=== PATIENT | female | born 1980 | race Two or more races ===

== ENCOUNTER 2020-10-08 15:09 | Inpatient (IN) | payer MEDICAID ==
[~2020-10-08] VITALS: Ht 162.6 cm; Wt 147.0 kg
[~2020-10-08 15:09] MED LIST: LEV500T PO; MET25T PO; POLY33504 PO; PRE5T PO; PRED-188 PO
[2020-10-08 18:09] LABS: Basophils # (auto) 0.2 10 ^3/uL (0-0.2); Basophils % (auto) 0.8 % (0.0-2.0); Eosinophils # (auto) 0.1 10 ^3/uL (0-0.8); Eosinophils % (auto) 0.6 % (0.0-7.0); Hematocrit 47.4 % (36.0-46.0); Hemoglobin 16.4 g/dL (12.2-16.2); Lymphocytes # (auto) 6.5 10 ^3/uL (0.4-5.4); Lymphocytes % (auto) 27.8 % (10.0-50.0); Mean Corpuscular Hemoglobin 30.3 pg (28.0-32.0); Mean Corpuscular Hgb Conc. 34.5 g/dL (32.0-36.0); Mean Corpuscular Volume 87.9 fL (80.0-100.0); Monocytes # (auto) 1.5 10 ^3/uL (0-1.3); Monocytes % (auto) 6.5 % (0.0-12.0); Neutrophils % (auto) 64.3 % (37.0-80.0); Nucleated Red Blood Cells % 0.6 %; Platelet Count (auto) 255 10^3/uL (140-450); Red Cell Distribution Width 13.7 % (11.8-14.3); White Blood Cell 23.3 10^3/uL (4.4-10.8)
[2020-10-08 18:16] LABS: Albumin 3.2 g/dL (3.4-5.0); Anion Gap 8 (5-15); Blood Urea Nitrogen 9 mg/dL (7-18); Calcium 9.1 mg/dL (8.5-10.1); Carbon Dioxide 27 mmol/L (21-32); Chloride 103 mmol/L (98-107); Glucose 99 mg/dL (74-106); Sodium 138 mmol/L (136-145)
[2020-10-08 18:21] LABS: Alanine Aminotransferase 25 U/L (13-56); Alkaline Phosphatase 99 U/L (45-117); Aspartate Aminotransferase 25 U/L (15-37); BUN/Creatinine Ratio 7.5; Bilirubin, Total 1.1 mg/dL (0.2-1.0); GFR African American 64 mL/min; GFR Non-African American 53 mL/min; Total Protein 7.8 g/dL (6.4-8.2)
[2020-10-08] MEDS ORDERED: levoFLOXacin 500MG 100 ML IV ONE ×2 (19:30→20:30)
[2020-10-08] MEDS ORDERED: MORPHINE SULF INJ 2 MG/ML SYRINGE 1ML IV PRN (20:45)
[2020-10-08] MEDS ORDERED: NITROGLYCERIN 0.4 MG SL TAB SL PRN (20:45)
[2020-10-08] MEDS ORDERED: ENOXAPARIN SOD 100 MG/1 ML SYRINGE SC ONE (20:45)
[2020-10-08] MEDS ORDERED: IOHEXOL 350 MG/ML 100ML IJ ONE (22:58)
[2020-10-09 00:09] VITALS: BP 113/53
[2020-10-09 01:16] VITALS: BP 113/52
[2020-10-09] MEDS ORDERED: ACETAMINOPHEN 325 MG TAB PO PRN (03:00)
[2020-10-09] MEDS ORDERED: FURO20TA3 PO (03:33)
[2020-10-09] MEDS ORDERED: METO25TA93 PO (03:33)
[2020-10-09] MEDS ORDERED: LEVO25TA6 PO (03:33)
[2020-10-09] MEDS ORDERED: LISI20TA28 PO (03:33)
[2020-10-09 05:43] VITALS: BP 119/83
[2020-10-09] MEDS ORDERED: LEVOTHYROXINE SODIUM 50 MCG TAB PO SCH (07:00)
[2020-10-09 08:58] VITALS: BP 142/85
[2020-10-09] MEDS ORDERED: cefTRIAXone 1GM/50ML D5W 50 ML IV SCH (10:00)
[2020-10-09] MEDS ORDERED: LISINOPRIL 20 MG TAB PO SCH (10:00)
[2020-10-09] MEDS ORDERED: METOPROLOL SUCCINATE XL 50 MG TAB PO SCH (10:00)
[2020-10-09 12:48] VITALS: BP 117/68
[2020-10-09 13:26] LABS: Basophils # (auto) 0.1 10 ^3/uL (0-0.2); Basophils % (auto) 0.7 % (0.0-2.0); Eosinophils # (auto) 0.2 10 ^3/uL (0-0.8); Eosinophils % (auto) 1.7 % (0.0-7.0); Hematocrit 42.2 % (36.0-46.0); Hemoglobin 14.5 g/dL (12.2-16.2); Lymphocytes # (auto) 3.7 10 ^3/uL (0.4-5.4); Lymphocytes % (auto) 32.8 % (10.0-50.0); Mean Corpuscular Hemoglobin 30.2 pg (28.0-32.0); Mean Corpuscular Hgb Conc. 34.3 g/dL (32.0-36.0); Mean Corpuscular Volume 88.2 fL (80.0-100.0); Monocytes # (auto) 0.8 10 ^3/uL (0-1.3); Neutrophils # (auto) 6.5 10 ^3/uL (1.6-8.6); Neutrophils % (auto) 57.8 % (37.0-80.0); Nucleated Red Blood Cells % 0.2 %; Platelet Count (auto) 241 10^3/uL (140-450); Red Blood Cells 4.79 10^6/uL (4.0-5.20); Red Cell Distribution Width 14.2 % (11.8-14.3); White Blood Cell 11.2 10^3/uL (4.4-10.8)
[2020-10-09 13:39] LABS: Albumin 2.9 g/dL (3.4-5.0); Calcium 9.5 mg/dL (8.5-10.1); Potassium 3.7 mmol/L (3.5-5.1)
[2020-10-09 13:42] LABS: BUN/Creatinine Ratio 10.9; Bilirubin, Total 0.6 mg/dL (0.2-1.0); Total Protein 7.2 g/dL (6.4-8.2)
[2020-10-09] MEDS ORDERED: levoFLOXacin 500 MG TAB PO ONE (14:00)
[2020-10-09 16:26] VITALS: BP 144/85
[2020-10-09] MEDS ORDERED: ALBUAER3 IN (17:31)
[2020-10-09] MEDS ORDERED: LEVO500T31 PO (17:31)
[2020-10-09] MEDS ORDERED: DEXT1SYP9 PO (17:31)
== END 2020-10-09 18:25 | disposition home or self-care (01) | DRG 139 ==
LOC: ER 15:09 → TELE 20:52 → TELE-CENTR 10-09 00:09
PROVIDERS: ADMIT Hospitalist; ATTEND Hospitalist
DX: J18.9 Pneumonia, unspecified organism (principal); I11.0 Hypertensive heart disease with heart failure; E66.01 Morbid (severe) obesity due to excess calories; I50.9 Heart failure, unspecified; Z68.43 Body mass index [BMI] 50.0-59.9, adult; E03.9 Hypothyroidism, unspecified; Z20.822 Contact with and (suspected) exposure to COVID-19; Z80.49 Family history of malignant neoplasm of other genital organs; F32.9 Major depressive disorder, single episode, unspecified; R79.89 Other specified abnormal findings of blood chemistry; Z88.6 Allergy status to analgesic agent; Z88.5 Allergy status to narcotic agent
CPT/HCPCS: 36415; 71046; 71275; 80053; 83605; 84484; 85025; 85379; 87040; 87426; 93005; 93970; 96365; 96372; G0378; J0696; J1956

== ENCOUNTER 2023-06-05 16:10 | Emergency (ER) | payer MEDICAID ==
[~2023-06-05 16:10] MED LIST changes: +ALBUAER3 IN; +DEXT1SYP9 PO; +FURO20TA3 PO; -LEV500T PO; +LEVO25TA6 PO; +LEVO500T31 PO; +LISI20TA56 PO; -MET25T PO; +METO25TA93 PO; -POLY33504 PO; -PRE5T PO; -PRED-188 PO
[2023-06-05 17:14] LABS: Basophils # (auto) 0.1 10 ^3/uL (0-0.2); Basophils % (auto) 0.5 % (0.0-2.0); Eosinophils # (auto) 0.2 10 ^3/uL (0-0.8); Hemoglobin 16.6 g/dL (12.2-16.2); Lymphocytes # (auto) 3.1 10 ^3/uL (0.4-5.4); Lymphocytes % (auto) 18.4 % (10.0-50.0); Mean Corpuscular Hemoglobin 28.8 pg (28.0-32.0); Mean Corpuscular Hgb Conc. 32.6 g/dL (32.0-36.0); Mean Corpuscular Volume 88.2 fL (80.0-100.0); Monocytes # (auto) 1.1 10 ^3/uL (0-1.3); Monocytes % (auto) 6.3 % (0.0-12.0); Neutrophils # (auto) 12.3 10 ^3/uL (1.6-8.6); Neutrophils % (auto) 73.8 % (37.0-80.0); Nucleated Red Blood Cells % 0.2 %; Red Blood Cells 5.78 10^6/uL (4.0-5.20); Red Cell Distribution Width 13.4 % (11.8-14.3); White Blood Cell 16.7 10^3/uL (4.4-10.8)
[2023-06-05 17:36] LABS: Alanine Aminotransferase 19 U/L (7-40); Alkaline Phosphatase 109 U/L (46-116); Aspartate Aminotransferase 24 U/L (13-40); BUN/Creatinine Ratio 11.7 (10.0-20.0); Bilirubin, Total 0.6 mg/dL (0.2-1.0); Blood Urea Nitrogen 13 mg/dL (9-23); Calcium 10.3 mg/dL (8.7-10.4); Carbon Dioxide 25 mmol/L (20-30); Glucose 117 mg/dL (74-106); Total Protein 7.8 g/dL (5.7-8.2)
[2023-06-05] MEDS ORDERED: LISINOPRIL 10 MG TAB PO ONE (17:45)
[2023-06-05 18:29] LABS: Anion Gap 10 (5-15); Chloride 103 mmol/L (98-107); Potassium 4.5 mmol/L (3.5-5.1); Sodium 138 mmol/L (136-145)
[2023-06-05 18:41] VITALS: BP 159/98; RESP 20; O2SAT 95
[2023-06-05 18:46] VITALS: PULSE 102
[2023-06-05] MEDS ORDERED: IPRATROPIUM BROM 0.5 MG/2.5ML INH SOL NEB ONE (19:30)
[2023-06-05] MEDS ORDERED: methylPREDNISolone SOD SUCC 125 MG/2 ML VL IM ONE (19:30)
[2023-06-05] MEDS ORDERED: ALBUTEROL SULF 2.5 MG/0.5ML(0.5%) NEB SOLN NEB ONE (19:30)
[2023-06-05] MEDS ORDERED: cefTRIAXone SOD 1,000 MG VL IM ONE (19:30)
[2023-06-05] MEDS ORDERED: PRED20TA2 PO (21:10)
[2023-06-05] MEDS ORDERED: AZITTAB PO (21:10)
[2023-06-05] MEDS ORDERED: ALBU108A5 IN (21:10)
== END 2023-06-05 21:10 | disposition home or self-care (01) ==
LOC: ER 16:10
DX: I11.0 Hypertensive heart disease with heart failure (principal); I50.9 Heart failure, unspecified; J18.9 Pneumonia, unspecified organism
CPT/HCPCS: 36415; 71045; 80053; 84484; 85025; 93005; 96372; 99285; J0696; J2930; J7644

== ENCOUNTER 2024-02-21 01:49 | Inpatient (IN) | payer MEDICAID ==
[2024-02-21] VITALS (70 sets, daily range): BP systolic 111–205; BP diastolic 48–99; PULSE 44–113; RESP 12–29; TEMP 95.9–99; O2SAT 90–100
[~2024-02-21] VITALS: Ht 162.6 cm; Wt 138.5 kg
[~2024-02-21 01:49] MED LIST changes: +ALBU108A5 IN; +ALBU108A5 INH; +AZITTAB PO; +CANA100T PO; +CARV12.544 PO; +FURO20TA4 PO; +POTA-180 PO; +PRED20TA2 PO
[2024-02-21] MEDS: HALOPERIDOL LACTATE 5 MG/ML INJ VIAL IM ONE (02:15)
[2024-02-21] MEDS: ACTIVATED CHARCOAL 50 GM/240 ML SOL NG ONE (02:15)
[2024-02-21] MEDS: NALOXONE HCL 1MG/ML 2ML SYRINGE IV ONE (02:20)
[2024-02-21] MEDS: FLUMAZENIL 0.1 MG/ML INJ 10ML MDV IV ONE (02:44)
[2024-02-21 02:46] LABS: Basophils # (auto) 0.1 10 ^3/uL (0-0.2); Basophils % (auto) 0.7 % (0.0-2.0); Eosinophils # (auto) 0.1 10 ^3/uL (0-0.8); Hemoglobin 11.4 g/dL (12.2-16.2); Monocytes # (auto) 0.6 10 ^3/uL (0-1.3); Neutrophils # (auto) 4.8 10 ^3/uL (1.6-8.6)
[2024-02-21 02:47] LABS: Eosinophils % (auto) 1.6 % (0.0-7.0); Hematocrit 36.1 % (36.0-46.0); Lymphocytes # (auto) 2.1 10 ^3/uL (0.4-5.4); Lymphocytes % (auto) 27.4 % (10.0-50.0); Mean Corpuscular Hemoglobin 23.7 pg (28.0-32.0); Mean Corpuscular Hgb Conc. 31.7 g/dL (32.0-36.0); Mean Corpuscular Volume 74.7 fL (80.0-100.0); Monocytes % (auto) 7.8 % (0.0-12.0); Neutrophils % (auto) 62.5 % (37.0-80.0); Platelet Count (auto) 254 10^3/uL (140-450); Red Blood Cells 4.83 10^6/uL (4.0-5.20); Red Cell Distribution Width 16.9 % (11.8-14.3); White Blood Cell 7.7 10^3/uL (4.4-10.8)
[2024-02-21] MEDS: HALOPERIDOL LACTATE 5 MG/ML INJ VIAL ONE (02:49)
[2024-02-21 02:56] LABS: Acetaminophen < 2.0 UG/ML (10.0-20.0)
[2024-02-21 02:57] LABS: Alanine Aminotransferase 11 U/L (7-40); Albumin 4.4 g/dL (3.2-4.8); Alkaline Phosphatase 99 U/L (46-116); Anion Gap 7 (5-15); Aspartate Aminotransferase 13 U/L (13-40); Bilirubin, Total 0.5 mg/dL (0.2-1.0); Blood Urea Nitrogen 15 mg/dL (9-23); Calcium 9.2 mg/dL (8.7-10.4); Carbon Dioxide 25 mmol/L (20-30); Chloride 109 mmol/L (98-107); Glucose 136 mg/dL (74-106); Potassium 3.4 mmol/L (3.5-5.1); Sodium 141 mmol/L (136-145); Total Protein 7.3 g/dL (5.7-8.2)
[2024-02-21 03:02] LABS: Salicylate < 3.0 mg/dL (2.8-20.0)
[2024-02-21 03:06] LABS: Urine Bacteria None Seen /hpf (None Seen)
[2024-02-21 03:10] LABS: Urine Blood 1+ /uL (Negative); Urine Clarity Clear (Clear); Urine Color Light-Yellow (Yellow); Urine Protein, UAD Negative (Negative); Urine Specific Gravity 1.022 (1.001-1.035); Urine Urobilinogen 2 mg/dL (Negative); Urine WBC <1 /hpf (0 - 5)
[2024-02-21 03:16] LABS: Blood Alcohol < 3.0 mg/dL (<10)
[2024-02-21 03:23] LABS: Amphetamine Screen, Urine Pos (NEGATIVE); Barbiturate Scree,Urine Neg (NEGATIVE); Benzodiazephine Screen, Urine Neg (NEGATIVE); Cocaine Screen, Urine Neg (NEGATIVE)
[2024-02-21 03:24] LABS: Cannabinoid Screen, Urine Neg (NEGATIVE); Opiate Scree,Urine Neg (NEGATIVE); Phencyclidine Screen, Urine Neg (NEGATIVE)
[2024-02-21] MEDS: LABETALOL HCL 20 MG/4 ML VL IV ONE (04:03)
[2024-02-21] MEDS: GLUCAGON EMERG KIT 1mg/1ml IV ONE (04:16)
[2024-02-21] MEDS: DOPamine 1600MCG/ML D5W 250 ML IV ONE (04:24)
[2024-02-21] MEDS: DOPamine 1600MCG/ML D5W 250 ML IV SCH (04:30)
[2024-02-21] MEDS: ETOMIDATE (2MG/ML) 20ML VIAL IV ONE (04:37)
[2024-02-21] MEDS: SUCCINYLCHOLINE CHLORIDE 20 MG/ML 10ML VIAL IV ONE (04:38)
[2024-02-21] MEDS: MIDAZOLAM DRIP 50 mg/50mL 50 ML IV SCH (04:45)
[2024-02-21] MEDS: SODIUM CHLORIDE 0.9% 1,000 ML IV SCH (06:00)
[2024-02-21] MEDS ORDERED: NITROGLYCERIN 0.4 MG SL TAB SL PRN (06:00)
[2024-02-21] MEDS ORDERED: ONDANSETRON HCL 4 MG/2 ML VIAL IV PRN (06:00)
[2024-02-21] MEDS ORDERED: MORPHINE SULFATE INJ 2 MG/ml SYRG IV PRN (06:00)
[2024-02-21] MEDS: GLUCAGON EMERG KIT 1mg/1ml ONE (06:18)
[2024-02-21 07:13] LABS: Base Excess -3.1 mmol/L (-2.0-3.0)
[2024-02-21] MEDS: ROCURONIUM 10MG/ML 10ML VIAL IV ONE (07:24)
[2024-02-21] MEDS: ENOXAPARIN SOD 40 MG/0.4 ML SYRINGE SC SCH (10:58)
[2024-02-21] MEDS: hydrALAZINE HCL 20 MG/ML VL IV PRN (11:08)
[2024-02-21] MEDS: D5W/SOD CHL 0.9%/KCL 40MEQ 1,000 ML IV SCH (11:08)
[2024-02-21] MEDS: hydrALAZINE HCL 20 MG/ML VL ONE (11:17)
[2024-02-21] MEDS: LISINOPRIL 20 MG TAB PO ONE (11:58)
[2024-02-21] MEDS: IPRATROPIUM BROM 0.5 MG/2.5ML INH SOL NEB SCH (13:47)
[2024-02-21] MEDS: ALBUTEROL SULF 2.5 MG/0.5ML(0.5%) NEB SOLN NEB SCH (13:47)
[2024-02-21 14:45] LABS: Chloride 112 mmol/L (98-107); Potassium 3.9 mmol/L (3.5-5.1); Sodium 144 mmol/L (136-145)
[2024-02-21 14:46] LABS: Anion Gap 6 (5-15); Carbon Dioxide 26 mmol/L (20-30)
[2024-02-21 14:47] LABS: Calcium 9.3 mg/dL (8.7-10.4)
[2024-02-21 14:51] LABS: BUN/Creatinine Ratio 12.8 (10.0-20.0); Blood Urea Nitrogen 11 mg/dL (9-23); Glucose 103 mg/dL (74-106)
[2024-02-21 14:52] LABS: Magnesium 2.2 mg/dL (1.6-2.6)
[2024-02-21] MEDS: fentaNYL Drip 2500mCg/250mlNS 250 ML IV SCH (15:33)
[2024-02-21] MEDS: fentaNYL Drip 2500mCg/250mlNS 250 ML IV ONE (15:34)
[2024-02-22] VITALS (106 sets, daily range): BP systolic 79–219; BP diastolic 20–106; PULSE 64–136; RESP 10–25; TEMP 98.4–100.8; O2SAT 80–100
[2024-02-22 03:59] LABS: Basophils # (auto) 0 10 ^3/uL (0-0.2); Basophils % (auto) 0.2 % (0.0-2.0); Eosinophils # (auto) 0 10 ^3/uL (0-0.8); Eosinophils % (auto) 0.3 % (0.0-7.0); Hematocrit 40.7 % (36.0-46.0); Hemoglobin 12.2 g/dL (12.2-16.2); Lymphocytes % (auto) 6.9 % (10.0-50.0); Mean Corpuscular Hemoglobin 23.6 pg (28.0-32.0); Mean Corpuscular Hgb Conc. 29.8 g/dL (32.0-36.0); Mean Corpuscular Volume 79.1 fL (80.0-100.0); Monocytes # (auto) 0.9 10 ^3/uL (0-1.3); Monocytes % (auto) 5.9 % (0.0-12.0); Neutrophils # (auto) 12.8 10 ^3/uL (1.6-8.6); Neutrophils % (auto) 86.7 % (37.0-80.0); Nucleated Red Blood Cells % 0.1 %; Platelet Count (auto) 235 10^3/uL (140-450); Red Blood Cells 5.15 10^6/uL (4.0-5.20); Red Cell Distribution Width 18.2 % (11.8-14.3); White Blood Cell 14.8 10^3/uL (4.4-10.8)
[2024-02-22 04:18] LABS: Albumin 4.1 g/dL (3.2-4.8); Alkaline Phosphatase 89 U/L (46-116); Anion Gap 11 (5-15); Aspartate Aminotransferase 16 U/L (13-40); BUN/Creatinine Ratio 7.1 (10.0-20.0); Bilirubin, Total 0.4 mg/dL (0.2-1.0); Blood Urea Nitrogen 6 mg/dL (9-23); Calcium 8.8 mg/dL (8.7-10.4); Carbon Dioxide 20 mmol/L (20-30); Chloride 111 mmol/L (98-107); Glucose 192 mg/dL (74-106); Potassium 3.8 mmol/L (3.5-5.1); Sodium 142 mmol/L (136-145); Total Protein 6.8 g/dL (5.7-8.2)
[2024-02-22 04:46] LABS: Alanine Aminotransferase < 9 U/L (7-40)
[2024-02-22] MEDS ORDERED: VANCOMYCIN PER PHARMACY 0 MG IV SCH (09:15)
[2024-02-22] MEDS: PANTOPRAZOLE 40 MG/10 ML VIAL INJ IV SCH (09:16)
[2024-02-22] MEDS: LISINOPRIL 20 MG TAB PO SCH (09:17)
[2024-02-22] MEDS: cefTRIAXone 1GM/50ML D5W 50 ML IV SCH (10:17)
[2024-02-22] MEDS: FUROSEMIDE 40 MG/4 ML VIAL IV SCH (10:37)
[2024-02-22] MEDS: POTASSIUM EFFERVESENT TAB 25 MEQ PO SCH (10:37)
[2024-02-22] MEDS: VANCOMYCIN 1GM/200ML 200 ML IV ONE ×2 (10:54→12:14)
[2024-02-22] MEDS: Jevity 1.2 Cal/Fiber 1 Liter GT SCH (13:06)
[2024-02-22] MEDS: ACETAMINOPHEN 325 MG TAB PO PRN (13:10)
[2024-02-22] MEDS: ACETAMINOPHEN IV 1000 MG/100ML (10MG/ML) IV ONE (18:26)
[2024-02-22 18:40] LABS: INR 1.07 (0.9-1.15); Partial Thromboplastin Time 30.2 SEC (24.5-34.5); Prothrombin Time 11.3 sec (9.3-11.8)
[2024-02-22] MEDS: PROPOFOL 100 ML IV SCH (19:49)
[2024-02-22] MEDS: NOREPINEPHRINE 8 MG/250ML KIT 250 ML IV ONE (20:55)
[2024-02-22] MEDS: NOREPINEPHRINE 8 MG/250ML KIT 250 ML IV SCH (20:58)
[2024-02-22] MEDS: VANCOMYCIN 1GM/200ML 200 ML IV SCH (22:14)
[2024-02-23] VITALS (107 sets, daily range): BP systolic 94–149; BP diastolic 38–72; PULSE 84–98; RESP 12–21; TEMP 99.3–100.8; O2SAT 91–100
[2024-02-23 04:13] LABS: Chloride 109 mmol/L (98-107); Potassium 4.2 mmol/L (3.5-5.1); Sodium 139 mmol/L (136-145)
[2024-02-23 04:14] LABS: Anion Gap 12 (5-15); Calcium 9.6 mg/dL (8.7-10.4); Carbon Dioxide 18 mmol/L (20-30)
[2024-02-23 04:19] LABS: BUN/Creatinine Ratio 7.4 (10.0-20.0); Blood Urea Nitrogen 8 mg/dL (9-23); Glucose 103 mg/dL (74-106)
[2024-02-23 04:20] LABS: Magnesium 2.4 mg/dL (1.6-2.6)
[2024-02-23 04:46] LABS: Basophils # (auto) 0.1 10 ^3/uL (0-0.2); Basophils % (auto) 0.6 % (0.0-2.0); Eosinophils # (auto) 0.2 10 ^3/uL (0-0.8); Eosinophils % (auto) 1.4 % (0.0-7.0); Hematocrit 35.8 % (36.0-46.0); Lymphocytes # (auto) 1.6 10 ^3/uL (0.4-5.4); Lymphocytes % (auto) 14.5 % (10.0-50.0); Mean Corpuscular Hemoglobin 24.1 pg (28.0-32.0); Mean Corpuscular Hgb Conc. 30.8 g/dL (32.0-36.0); Mean Corpuscular Volume 78.2 fL (80.0-100.0); Monocytes # (auto) 1.1 10 ^3/uL (0-1.3); Monocytes % (auto) 10.5 % (0.0-12.0); Neutrophils # (auto) 7.9 10 ^3/uL (1.6-8.6); Platelet Count (auto) 250 10^3/uL (140-450); Red Blood Cells 4.58 10^6/uL (4.0-5.20); Red Cell Distribution Width 18.4 % (11.8-14.3); White Blood Cell 10.8 10^3/uL (4.4-10.8)
[2024-02-23 08:13] LABS: Base Excess -2.9 mmol/L (-2.0-3.0)
[2024-02-24] VITALS (106 sets, daily range): BP systolic 100–138; BP diastolic 42–65; PULSE 78–91; RESP 10–20; TEMP 98.1–99.3; O2SAT 88–100
[2024-02-24 04:22] LABS: Anion Gap 5 (5-15); Calcium 9.3 mg/dL (8.7-10.4); Carbon Dioxide 27 mmol/L (20-30); Chloride 108 mmol/L (98-107); Sodium 140 mmol/L (136-145)
[2024-02-24 04:25] LABS: Eosinophils # (auto) 0.2 10 ^3/uL (0-0.8); Monocytes # (auto) 0.8 10 ^3/uL (0-1.3); Platelet Count (auto) 231 10^3/uL (140-450); Red Cell Distribution Width 17.8 % (11.8-14.3)
[2024-02-24 04:28] LABS: BUN/Creatinine Ratio 17.4 (10.0-20.0); Basophils # (auto) 0.1 10 ^3/uL (0-0.2); Basophils % (auto) 0.7 % (0.0-2.0); Blood Urea Nitrogen 16 mg/dL (9-23); Eosinophils % (auto) 2.1 % (0.0-7.0); Glucose 99 mg/dL (74-106); Hematocrit 30.5 % (36.0-46.0); Lymphocytes # (auto) 1.4 10 ^3/uL (0.4-5.4); Lymphocytes % (auto) 15.5 % (10.0-50.0); Mean Corpuscular Hemoglobin 24.8 pg (28.0-32.0); Mean Corpuscular Hgb Conc. 32.8 g/dL (32.0-36.0); Mean Corpuscular Volume 75.5 fL (80.0-100.0); Monocytes % (auto) 8.7 % (0.0-12.0); Neutrophils # (auto) 6.6 10 ^3/uL (1.6-8.6); Nucleated Red Blood Cells % 0.2 %; Red Blood Cells 4.04 10^6/uL (4.0-5.20)
[2024-02-24 08:13] LABS: Base Excess -0.9 mmol/L (-2.0-3.0)
[2024-02-24] MEDS: IOHEXOL 350 MG/ML 100ML IJ ONE ×2 (08:40→10:31)
[2024-02-24] MEDS: MEROPENEM 1GM IVPB 50 ML IV SCH (13:36)
[2024-02-24] MEDS: VANCOMYCIN 1GM/200ML 200 ML IV SCH (19:54)
[2024-02-25] VITALS (108 sets, daily range): BP systolic 88–139; BP diastolic 40–69; PULSE 83–102; RESP 13–28; TEMP 97–99.5; O2SAT 65–99
[2024-02-25] MEDS: ALBUTEROL SULF 2.5 MG/0.5ML(0.5%) NEB SOLN NEB PRN (04:40)
[2024-02-25 07:08] LABS: Base Excess 2.2 mmol/L (-2.0-3.0)
[2024-02-26] VITALS (108 sets, daily range): BP systolic 86–163; BP diastolic 36–91; PULSE 84–105; RESP 17–29; TEMP 98.1–99.7; O2SAT 89–100
[2024-02-26] MEDS: VANCOMYCIN 1GM/200ML 200 ML IV SCH ×2 (03:11→17:56)
[2024-02-26 03:32] LABS: Basophils # (auto) 0.1 10 ^3/uL (0-0.2); Basophils % (auto) 0.6 % (0.0-2.0); Eosinophils # (auto) 0.2 10 ^3/uL (0-0.8); Eosinophils % (auto) 2.5 % (0.0-7.0); Hematocrit 31.7 % (36.0-46.0); Hemoglobin 10.2 g/dL (12.2-16.2); Lymphocytes # (auto) 1.2 10 ^3/uL (0.4-5.4); Lymphocytes % (auto) 12.8 % (10.0-50.0); Mean Corpuscular Hemoglobin 24.4 pg (28.0-32.0); Mean Corpuscular Hgb Conc. 32.2 g/dL (32.0-36.0); Mean Corpuscular Volume 75.8 fL (80.0-100.0); Monocytes # (auto) 0.9 10 ^3/uL (0-1.3); Monocytes % (auto) 9.7 % (0.0-12.0); Neutrophils % (auto) 74.4 % (37.0-80.0); Platelet Count (auto) 293 10^3/uL (140-450); Red Blood Cells 4.18 10^6/uL (4.0-5.20); White Blood Cell 9.4 10^3/uL (4.4-10.8)
[2024-02-26 08:13] LABS: Chloride 104 mmol/L (98-107); Potassium 4.5 mmol/L (3.5-5.1); Sodium 139 mmol/L (136-145)
[2024-02-26 08:14] LABS: Anion Gap 9 (5-15); Carbon Dioxide 26 mmol/L (20-30)
[2024-02-26 08:19] LABS: Blood Urea Nitrogen 17 mg/dL (9-23); Glucose 107 mg/dL (74-106)
[2024-02-27] VITALS (104 sets, daily range): BP systolic 95–188; BP diastolic 47–99; PULSE 78–107; RESP 16–32; TEMP 98.6–99.9; O2SAT 84–100
[2024-02-27 04:45] LABS: Anion Gap 2 (5-15); Carbon Dioxide 33 mmol/L (20-30); Chloride 104 mmol/L (98-107); Potassium 3.7 mmol/L (3.5-5.1); Sodium 139 mmol/L (136-145)
[2024-02-27 04:47] LABS: Calcium 9.5 mg/dL (8.7-10.4)
[2024-02-27 04:51] LABS: BUN/Creatinine Ratio 27.6 (10.0-20.0); Blood Urea Nitrogen 16 mg/dL (9-23); Glucose 96 mg/dL (74-106)
[2024-02-27 07:16] LABS: Eosinophils # (auto) 0.2 10 ^3/uL (0-0.8); Lymphocytes # (auto) 1.2 10 ^3/uL (0.4-5.4); Monocytes # (auto) 0.7 10 ^3/uL (0-1.3); Nucleated Red Blood Cells % 0.1 %
[2024-02-27 07:20] LABS: Basophils # (auto) 0.1 10 ^3/uL (0-0.2); Eosinophils % (auto) 2.9 % (0.0-7.0); Hematocrit 29.6 % (36.0-46.0); Hemoglobin 9.5 g/dL (12.2-16.2); Lymphocytes % (auto) 18.5 % (10.0-50.0); Mean Corpuscular Hemoglobin 24.2 pg (28.0-32.0); Mean Corpuscular Hgb Conc. 32.1 g/dL (32.0-36.0); Mean Corpuscular Volume 75.2 fL (80.0-100.0); Monocytes % (auto) 10.9 % (0.0-12.0); Neutrophils # (auto) 4.4 10 ^3/uL (1.6-8.6); Neutrophils % (auto) 66.7 % (37.0-80.0); Platelet Count (auto) 256 10^3/uL (140-450); Red Blood Cells 3.93 10^6/uL (4.0-5.20); Red Cell Distribution Width 17.4 % (11.8-14.3); White Blood Cell 6.6 10^3/uL (4.4-10.8)
[2024-02-27 07:24] LABS: Base Excess 6.6 mmol/L (-2.0-3.0)
[2024-02-27 20:02] LABS: Base Excess 9.1 mmol/L (-2.0-3.0)
[2024-02-28] VITALS (107 sets, daily range): BP systolic 96–173; BP diastolic 44–102; PULSE 88–108; RESP 18–27; TEMP 94.5–101.3; O2SAT 93–100
[2024-02-28 05:24] LABS: Chloride 97 mmol/L (98-107); Potassium 4.1 mmol/L (3.5-5.1); Sodium 135 mmol/L (136-145)
[2024-02-28 05:25] LABS: Anion Gap 6 (5-15); Carbon Dioxide 32 mmol/L (20-30)
[2024-02-28 05:30] LABS: BUN/Creatinine Ratio 25.7 (10.0-20.0); Blood Urea Nitrogen 19 mg/dL (9-23); Glucose 126 mg/dL (74-106)
[2024-02-28 05:34] LABS: Basophils # (auto) 0.1 10 ^3/uL (0-0.2); Basophils % (auto) 1.1 % (0.0-2.0); Eosinophils # (auto) 0.3 10 ^3/uL (0-0.8); Eosinophils % (auto) 3.3 % (0.0-7.0); Hematocrit 31.4 % (36.0-46.0); Hemoglobin 10.3 g/dL (12.2-16.2); Lymphocytes # (auto) 1.3 10 ^3/uL (0.4-5.4); Mean Corpuscular Hemoglobin 24.3 pg (28.0-32.0); Mean Corpuscular Hgb Conc. 32.7 g/dL (32.0-36.0); Mean Corpuscular Volume 74.4 fL (80.0-100.0); Monocytes # (auto) 0.8 10 ^3/uL (0-1.3); Monocytes % (auto) 9.6 % (0.0-12.0); Neutrophils # (auto) 5.7 10 ^3/uL (1.6-8.6); Nucleated Red Blood Cells % 0.1 %; Platelet Count (auto) 304 10^3/uL (140-450); Red Blood Cells 4.22 10^6/uL (4.0-5.20); Red Cell Distribution Width 17.7 % (11.8-14.3); White Blood Cell 8.2 10^3/uL (4.4-10.8)
[2024-02-28] MEDS: METOPROLOL TARTRATE 25 MG TAB PO SCH (11:24)
[2024-02-28] MEDS: ACETYLCYSTEINE 10 %(100MG/ML) SOL 4ML NEB SCH (12:16)
[2024-02-28] MEDS ORDERED: ACETYLCYSTEINE 10 %(100MG/ML) SOL 4ML NEB SCH (19:59)
[2024-02-28] MEDS: GLYCOPYRROLATE 0.2 MG/ML 1ML VIAL IV SCH (21:30)
[2024-02-29] VITALS (107 sets, daily range): BP systolic 126–200; BP diastolic 64–126; PULSE 89–118; RESP 12–26; TEMP 98.4–100.8; O2SAT 82–100
[2024-02-29 04:13] LABS: Basophils # (auto) 0.1 10 ^3/uL (0-0.2); Basophils % (auto) 0.9 % (0.0-2.0); Eosinophils # (auto) 0.2 10 ^3/uL (0-0.8); Eosinophils % (auto) 2.3 % (0.0-7.0); Hematocrit 32.9 % (36.0-46.0); Hemoglobin 10.8 g/dL (12.2-16.2); Lymphocytes # (auto) 1.6 10 ^3/uL (0.4-5.4); Lymphocytes % (auto) 17.9 % (10.0-50.0); Mean Corpuscular Hemoglobin 24.4 pg (28.0-32.0); Mean Corpuscular Hgb Conc. 32.9 g/dL (32.0-36.0); Mean Corpuscular Volume 74.2 fL (80.0-100.0); Monocytes % (auto) 11.4 % (0.0-12.0); Neutrophils % (auto) 67.5 % (37.0-80.0); Nucleated Red Blood Cells % 0.1 %; Platelet Count (auto) 316 10^3/uL (140-450); Red Blood Cells 4.43 10^6/uL (4.0-5.20); Red Cell Distribution Width 17.8 % (11.8-14.3); White Blood Cell 8.8 10^3/uL (4.4-10.8)
[2024-02-29 04:25] LABS: Chloride 95 mmol/L (98-107); Potassium 3.5 mmol/L (3.5-5.1); Sodium 134 mmol/L (136-145)
[2024-02-29 04:26] LABS: Anion Gap 4 (5-15); Carbon Dioxide 35 mmol/L (20-30)
[2024-02-29 04:27] LABS: Calcium 10.1 mg/dL (8.7-10.4)
[2024-02-29 04:31] LABS: BUN/Creatinine Ratio 28.4 (10.0-20.0); Blood Urea Nitrogen 19 mg/dL (9-23); Glucose 106 mg/dL (74-106)
[2024-02-29 09:09] LABS: Base Excess 10.2 mmol/L (-2.0-3.0)
[2024-02-29] MEDS ORDERED: LABETALOL HCL 20 MG/4 ML VL IV PRN (17:15)
[2024-02-29] MEDS: LABETALOL HCL 20 MG/4 ML VL IV PRN (17:33)
[2024-02-29] MEDS: LORazepam 2MG/ML-1ML VIAL IV PRN (17:34)
[2024-02-29] MEDS: ACETAMINOPHEN 650 MG RECT SUPP PR PRN (22:05)
[2024-03-01] VITALS (48 sets, daily range): BP systolic 98–150; BP diastolic 60–90; PULSE 97–112; RESP 10–25; TEMP 97.8–100.2; O2SAT 89–100
[2024-03-01 04:06] LABS: Basophils # (auto) 0.1 10 ^3/uL (0-0.2); Basophils % (auto) 0.6 % (0.0-2.0); Eosinophils # (auto) 0.1 10 ^3/uL (0-0.8); Mean Corpuscular Hgb Conc. 32.8 g/dL (32.0-36.0); Neutrophils # (auto) 7.1 10 ^3/uL (1.6-8.6); Red Blood Cells 4.81 10^6/uL (4.0-5.20); White Blood Cell 9.6 10^3/uL (4.4-10.8)
[2024-03-01 04:10] LABS: Hematocrit 35.6 % (36.0-46.0); Hemoglobin 11.7 g/dL (12.2-16.2); Lymphocytes # (auto) 1.4 10 ^3/uL (0.4-5.4); Lymphocytes % (auto) 14.6 % (10.0-50.0); Mean Corpuscular Hemoglobin 24.3 pg (28.0-32.0); Monocytes % (auto) 10.1 % (0.0-12.0); Neutrophils % (auto) 73.7 % (37.0-80.0); Platelet Count (auto) 345 10^3/uL (140-450); Red Cell Distribution Width 17.6 % (11.8-14.3)
[2024-03-01 04:34] LABS: Alanine Aminotransferase 28 U/L (7-40); Albumin 4.2 g/dL (3.2-4.8); Alkaline Phosphatase 106 U/L (46-116); Anion Gap 8 (5-15); Aspartate Aminotransferase 73 U/L (13-40); BUN/Creatinine Ratio 28.1 (10.0-20.0); Bilirubin, Total 0.4 mg/dL (0.2-1.0); Blood Urea Nitrogen 18 mg/dL (9-23); Calcium 10.3 mg/dL (8.7-10.4); Carbon Dioxide 31 mmol/L (20-30); Chloride 96 mmol/L (98-107); GFR African American 130 mL/min; GFR Non-African American 108 mL/min; Glucose 107 mg/dL (74-106); Phosphorus 2.8 mg/dL (2.4-5.1); Sodium 135 mmol/L (136-145); Total Protein 7.3 g/dL (5.7-8.2)
[2024-03-01] MEDS ORDERED: MORPHINE SULFATE INJ 2 MG/ml SYRG IV PRN (09:45)
[2024-03-01] MEDS: POTASSIUM CHL 20MEQ/100ML 100 ML IV SCH ×2 (10:22→19:11)
[2024-03-01 16:58] LABS: Potassium 3.3 mmol/L (3.5-5.1)
[2024-03-02] VITALS (14 sets, daily range): BP systolic 111–150; BP diastolic 70–82; PULSE 81–98; RESP 16–20; TEMP 97.6–98.6; O2SAT 92–100
[2024-03-02 09:16] LABS: Chloride 100 mmol/L (98-107); Potassium 3.8 mmol/L (3.5-5.1); Sodium 133 mmol/L (136-145)
[2024-03-02 09:17] LABS: Anion Gap 8 (5-15); Calcium 9.8 mg/dL (8.7-10.4); Carbon Dioxide 25 mmol/L (20-30)
[2024-03-02 09:22] LABS: Blood Urea Nitrogen 17 mg/dL (9-23); Glucose 105 mg/dL (74-106)
[2024-03-02] MEDS: ERTAPENEM SOD INJ 1 GM in SODIUM CHL 0.9% 50 ML IV SCH (10:33)
== END 2024-03-02 22:45 | disposition left against medical advice (07) | DRG 720 ==
LOC: ER 01:49 → TELE 06:04 → ICU WEST 08:37 → TELE-CENTR 03-01 18:21
PROVIDERS: ADMIT Nurse Practitioner; ATTEND Nurse Practitioner Acute Care
PROC: 5A1955Z Respiratory Ventilation, Greater than 96 Consecutive Hours (ICD-10-PCS; 2024-02-21)
PROC: 0BH17EZ Insertion of Endotracheal Airway into Trachea, Via Natural or Artificial Opening (ICD-10-PCS; 2024-02-21)
PROC: 05HF33Z Insertion of Infusion Device into Left Cephalic Vein, Percutaneous Approach (ICD-10-PCS; 2024-02-21)
PROC: B54NZZA Ultrasonography of Left Upper Extremity Veins, Guidance (ICD-10-PCS; 2024-02-21)
PROC: 02HV33Z Insertion of Infusion Device into Superior Vena Cava, Percutaneous Approach (ICD-10-PCS; principal; 2024-02-23)
PROC: B548ZZA Ultrasonography of Superior Vena Cava, Guidance (ICD-10-PCS; 2024-02-23)
PROC: 0B9B8ZZ Drainage of Left Lower Lobe Bronchus, Via Natural or Artificial Opening Endoscopic (ICD-10-PCS; 2024-02-28)
PROC: 0B968ZZ Drainage of Right Lower Lobe Bronchus, Via Natural or Artificial Opening Endoscopic (ICD-10-PCS; 2024-02-28)
DX: A41.51 Sepsis due to Escherichia coli [E. coli] (principal); J96.01 Acute respiratory failure with hypoxia; R65.21 Severe sepsis with septic shock; G92.8 Other toxic encephalopathy; J44.0 Chronic obstructive pulmonary disease with (acute) lower respiratory infection; J18.9 Pneumonia, unspecified organism; I50.43 Acute on chronic combined systolic (congestive) and diastolic (congestive) heart failure; Z68.43 Body mass index [BMI] 50.0-59.9, adult; T43.622A Poisoning by amphetamines, intentional self-harm, initial encounter; E87.6 Hypokalemia; E66.01 Morbid (severe) obesity due to excess calories; E03.9 Hypothyroidism, unspecified; N39.0 Urinary tract infection, site not specified; J96.02 Acute respiratory failure with hypercapnia; Z16.12 Extended spectrum beta lactamase (ESBL) resistance; Z53.29 Procedure and treatment not carried out because of patient's decision for other reasons; Z80.49 Family history of malignant neoplasm of other genital organs; Z82.0 Family history of epilepsy and other diseases of the nervous system; N17.9 Acute kidney failure, unspecified
CPT/HCPCS: 31500; 36415; 36600; 70450; 71045; 71275; 76856; 80048; 80053; 80069; 80202; 80307; 80320; 80329; 81001; 82565; 82805; 82962; 83036; 83605; 83735; 83880; 83930; 83935; 84132; 84702; 85025; 85379; 85610; 85730; 87040; 87070; 87077; 87086; 87088; 87186; 87205; 92507; 92610; 93306; 93970; 94002; 94003; 94640; 96372; 96374; 96375; 97110; 97116; 97163; 97530; 99291; G0378; J0131; J1335; J2185; J2470; J2704; J3480; J7060

== ENCOUNTER 2024-06-24 11:26 | Inpatient (IN) | payer MEDICAID ==
[~2024-06-24] VITALS: Ht 154.9 cm; Wt 127.4 kg
[~2024-06-24 11:26] MED LIST changes: -ALBU108A5 IN; -ALBUAER3 IN; -AZITTAB PO; -DEXT1SYP9 PO; -FURO20TA3 PO; -LEVO25TA6 PO; -LEVO500T31 PO; -METO25TA93 PO; -PRED20TA2 PO
--- NOTE | 2024-06-24 12:09 | ED.PDOC ---
History of Present Illness HPI Comments 44 y/o F, with a Hx of homelessness, polysubstance abuse, morbid obesity, CHF, thyroid disease, and HTN, presents with c/o abdominal pain and distension, nausea, and constipation, today. Patient endorses on having an current umbilical hernia for the past 2x years and it, now, starting to hurt along onset of other aforementioned symptoms, last night. Patient comments further on having no bowel movements, today, in addition to running out of her metoprolol, carvedilol, and Lasix medication for the past 2x months. She denies having any vomiting, diarrhea, fever, chills, urinary symptoms, shortness of breath, or other associated symptoms or modifiers at this time. Chief Complaint: Abdominal Pain Time Seen by MD: 11:50 Primary Care Provider: SIA Reviewed Notes: Nurses Notes, Medications, Allergies Allergies: Coded Allergies: Codeine (Verified Adverse Reaction, Severe, 10/09/20) Hydrocodone (Verified Adverse Reaction, Intermediate, 10/09/20) Home Meds Reported Medications Albuterol Sulfate (Albuterol Sulfate Hfa) 108 Mcg/Act Aer, 2 PUFF INH Q6HR PRN for WHEEZING for 17 Days, #18 02/21/24 Carvedilol (Carvedilol) 12.5 Mg Tab, 1 TAB PO BID for 30 Days, #60 02/21/24 Potassium Chloride (Potassium Chloride ER) 20 Meq Tab, 1 TAB PO DAILY for 30 Days, #30 02/21/24 Canagliflozin (INVOKANA) 100 Mg Tab, 1 TAB PO QAM for 30 Days, #30 02/21/24 Furosemide (Furosemide) 20 Mg Tab, 1 TAB PO DAILY for 30 Days, #30 02/21/24 Lisinopril (Lisinopril) 20 Mg Tab, 20 MG PO DAILY for 30 Days, MG 10/09/20 Information Source: Patient Mode of Arrival: Ambulatory Severity: Moderate Timing: Hours Duration: Since onset Prehospital treatment: None Past Medical History PAST MEDICAL HISTORY: CHF, Depression, HTN, Thyroid Past Medical History (Other): morbid obesity Surgical History (Other): facial surgery RIG SITE ENGINEER History: No Pertinent RIG SITE ENGINEER History Family History Family History: Reviewed,noncontributory to illness Social History Smoker: Cigarettes Alcohol: Occasionally Drugs: Marijuana, Methamphetamine Lives In: Home Gastrointestinal: reports: abdomen distended, abdominal pain, constipated, nausea All Other Systems: Reviewed and Negative (negative unless otherwise stated above or in HPI) Physical Exam General Appearance: Moderate Distress HEENT: Normal ENT Inspection, Pharynx Normal, TMs Normal Neck: Full Range of Motion, Non-Tender, Normal, Normal Inspection Respiratory: Chest Non-Tender, Lungs Clear, No Accessory Muscle Use, No Respiratory Distress, Normal Breath Sounds Cardiovascular: No Edema, No JVD, No Murmur, No Gallop, Normal Peripheral Pulses, Regular Rate/Rhythm Breast Exam: Deferred Gastrointestinal: Hernia Genitalia: Deferred Pelvic: Deferred Rectal: Deferred Extremities: No calf tenderness, Normal capillary refill, Normal inspection, Normal range of motion, Non-tender, No pedal edema Musculoskeletal : Apperance: Normal Neurologic: Alert, machining department supervisor II-XII nml as Tested, No Motor Deficits, Normal Affect, Normal Mood, No Sensory Deficits Cerebellar Function: Normal Reflexes: Normal Skin: Dry, Normal Color, Warm Peripheral Pulses: 3+ Radial (R), 3+ Radial (L) Lymphatic: No Adenopathy Was a procedure done? Was a procedure done?: No Differential Dx Considerations may include: strangulated hernia, incarcerated hernia, gastritis, gastroenteritis, viral syndrome, spoiled food, acute abdomen X-Ray, Labs, Meds, VS Vital Signs Date Time Temp Pulse Resp B/P (MAP) Pulse Ox O2 Delivery O2 Flow Rate FiO2 06/24/24 12:42 16 Room Air* 0 21 06/24/24 12:24 88 18 160/108 (125) 99 06/24/24 11:50 97.8 96 24 186/108 (134) 97 200/100 (133) Lab Test 06/24/24 14:03 06/24/24 12:10 06/24/24 11:52 Range/Units White Blood Count Pending Red Blood Count Pending Hemoglobin Pending Hematocrit Pending Mean Corpuscular Volume Pending Mean Corpuscular Hemoglobin Pending Mean Corpuscular Hemoglobin Concent Pending Red Cell Distribution Width Pending Platelet Count Pending Mean Platelet Volume Pending Neutrophils (%) (Auto) Pending Lymphocytes (%) (Auto) Pending Monocytes (%) (Auto) Pending Basophils (%) (Auto) Pending Neutrophils # (Auto) Pending Lymphocytes # (Auto) Pending Monocytes # (Auto) Pending Sodium Level 141 136-145 mmol/L Potassium Level 3.7 3.5-5.1 mmol/L Chloride Level 110 H 98-107 mmol/L Carbon Dioxide Level 22 20-31 mmol/L Anion Gap 9 5-15 Blood Urea Nitrogen 12 9-23 mg/dL Creatinine 1.00 0.550-1.02 mg/dL Glomerular Filtration Rate Calc 72 >90 mL/min BUN/Creatinine Ratio 12.0 10.0-20.0 Serum Glucose 126 H 74-106 mg/dL Calcium Level 9.7 8.7-10.4 mg/dL Urine Color Pending Urine Clarity Pending Urine pH Pending Urine Specific [place] Pending Urine Protein Pending Urine Ketones Pending Urine Blood Pending Urine Nitrite Pending Urine Bilirubin Pending Urine Urobilinogen Pending Urine Leukocyte Esterase Pending Urine RBC Pending Urine WBC Pending Urine Squamous Epithelial Cells Pending Urine Bacteria Pending Urine Glucose Pending Patient alert. Complaining of abdominal pain. Vitals stable. Answering all questions. Blood pressure elevated. Has not been taking her blood pressure medication. Continues to smoke cigarettes. Counseled patient on effects of smoking cigarettes for 15 minutes. On examination she does have umbilical hernia. Continues to have pain. Reviewed her previous visit. Explained to the patient. Continued cardiac monitoring. Time of 1ST Reevaluation: 12:20 Reevaluation 1ST: Unchanged Patient Education/Counseling: Diagnosis, Treatment Family Education/Counseling: No Family Present Departure 1 Departure Time of Disposition: 14:24 Impression: Primary Impression: Acute abdominal pain Additional Impressions: Hypertensive urgency Hernia Disposition: ADMITTED INPATIENT Admit to: Med Surg Condition: Guarded Critical Care Note Critical Care Time?: Yes (45 min-critical care time only) Stability Stability form required: No Heart Score Heart Score: Heart Score Response (Comments) Value History N/A 0 EKG N/A 0 Age N/A 0 Risk Factors N/A 0 Troponin N/A 0 Total 0 I personally scribed for AUTUMN METCALF MD ([email or web address]) on 06/24/24 at 12:09. Electronically submitted by Dragan Yañez ([email or web address]). AUTUMN METCALF MD Jun 24, 2024 12:09
[2024-06-24 12:42] VITALS: RESP 16
[2024-06-24 13:28] LABS: Potassium 3.7 mmol/L (3.5-5.1); Sodium 141 mmol/L (136-145)
[2024-06-24 13:29] LABS: Anion Gap 9 (5-15); Calcium 9.7 mg/dL (8.7-10.4); Carbon Dioxide 22 mmol/L (20-31)
[2024-06-24 13:30] LABS: Chloride 110 mmol/L (98-107)
[2024-06-24 13:34] LABS: Blood Urea Nitrogen 12 mg/dL (9-23)
[2024-06-24 13:46] LABS: Glucose 126 mg/dL (74-106)
[2024-06-24 14:06] LABS: Urine Bacteria None Seen /hpf (None Seen)
[2024-06-24 14:17] LABS: Urine Blood Negative /uL (Negative); Urine Budding Yeast OCCASIONAL /hpf (None Seen); Urine Clarity Turbid (Clear); Urine Color Yellow (Yellow); Urine Mucus FEW (None Seen); Urine Protein, UAD 1+ (Negative); Urine Specific Gravity 1.036 (1.001-1.035); Urine Squamous Epithelial Cell MOD /hpf (<5); Urine Urobilinogen Normal (Negative); Urine WBC 64 /hpf (0 - 5); Urine pH 5.5 (5.0-9.0)
[2024-06-24 14:20] LABS: Basophils # (auto) 0.1 10 ^3/uL (0-0.2); Basophils % (auto) 0.8 % (0.0-2.0); Eosinophils # (auto) 0.1 10 ^3/uL (0-0.8); Eosinophils % (auto) 1.7 % (0.0-7.0); Hematocrit 37.2 % (36.0-46.0); Hemoglobin 11.9 g/dL (12.2-16.2); Lymphocytes # (auto) 2.3 10 ^3/uL (0.4-5.4); Lymphocytes % (auto) 27.5 % (10.0-50.0); Mean Corpuscular Hemoglobin 24.8 pg (28.0-32.0); Mean Corpuscular Hgb Conc. 31.9 g/dL (32.0-36.0); Mean Corpuscular Volume 77.7 fL (80.0-100.0); Monocytes # (auto) 0.6 10 ^3/uL (0-1.3); Monocytes % (auto) 7.5 % (0.0-12.0); Neutrophils # (auto) 5.2 10 ^3/uL (1.6-8.6); Neutrophils % (auto) 62.5 % (37.0-80.0); Nucleated Red Blood Cells % 0.1 %; Platelet Count (auto) 272 10^3/uL (140-450); Red Blood Cells 4.79 10^6/uL (4.0-5.20); Red Cell Distribution Width 16.6 % (11.8-14.3); White Blood Cell 8.3 10^3/uL (4.4-10.8)
[2024-06-24] MEDS: ONDANSETRON HCL 4 MG/2 ML VIAL IV ONE (15:52)
[2024-06-24] MEDS: MORPHINE SULFATE 4 MG/ML SYR/VIAL IV ONE (15:52)
[2024-06-24 23:51] LABS: Basophils # (auto) 0.1 10 ^3/uL (0-0.2); Eosinophils # (auto) 0.2 10 ^3/uL (0-0.8); Hemoglobin 11.7 g/dL (12.2-16.2); Mean Corpuscular Volume 78.4 fL (80.0-100.0); Monocytes # (auto) 0.6 10 ^3/uL (0-1.3); Monocytes % (auto) 7.1 % (0.0-12.0)
[2024-06-24 23:52] LABS: Basophils % (auto) 0.7 % (0.0-2.0); Eosinophils % (auto) 2.1 % (0.0-7.0); Hematocrit 36.7 % (36.0-46.0); Lymphocytes # (auto) 2.3 10 ^3/uL (0.4-5.4); Lymphocytes % (auto) 29.5 % (10.0-50.0); Mean Corpuscular Hemoglobin 24.9 pg (28.0-32.0); Mean Corpuscular Hgb Conc. 31.8 g/dL (32.0-36.0); Neutrophils # (auto) 4.8 10 ^3/uL (1.6-8.6); Neutrophils % (auto) 60.6 % (37.0-80.0); Nucleated Red Blood Cells % 0.2 %; Platelet Count (auto) 269 10^3/uL (140-450); Red Blood Cells 4.68 10^6/uL (4.0-5.20); White Blood Cell 7.9 10^3/uL (4.4-10.8)
[2024-06-25 00:09] LABS: Albumin 4.3 g/dL (3.2-4.8); Alkaline Phosphatase 95 U/L (46-116); Anion Gap 9 (5-15); BUN/Creatinine Ratio 11.8 (10.0-20.0); Blood Urea Nitrogen 11 mg/dL (9-23); Calcium 9.8 mg/dL (8.7-10.4); Carbon Dioxide 22 mmol/L (20-31); Glucose 102 mg/dL (74-106); Potassium 3.8 mmol/L (3.5-5.1); Sodium 139 mmol/L (136-145)
[2024-06-25 00:21] LABS: Alanine Aminotransferase 9 U/L (7-40); Aspartate Aminotransferase 12 U/L (13-40); Bilirubin, Total 0.4 mg/dL (0.2-1.0); Chloride 108 mmol/L (98-107)
[2024-06-25] MEDS: hydrALAZINE HCL 20 MG/ML VL IV PRN ×2 (01:23→08:23)
[2024-06-25] MEDS ORDERED: MORPHINE SULFATE INJ 2 MG/ml SYRG IV PRN (01:30)
[2024-06-25] MEDS ORDERED: ONDANSETRON HCL 4 MG/2 ML VIAL IV PRN (01:30)
[2024-06-25 01:45] VITALS: BP 160/82
[2024-06-25 03:45] VITALS: BP_SYST 194; BP_SYST 201; BP_DIAS 52; BP_DIAS 97; PULSE 85
[2024-06-25] MEDS: LISINOPRIL 20 MG TAB PO ONE (04:15)
--- NOTE | 2024-06-25 04:15 | DVH ---
Exam: CT CT AB PEL WO CON-NO ORAL OR IV History: ventral hernia strangulation Comparison Study: None available at time of dictation. Technique: Multidetector spiral CT of the abdomen and pelvis was performed from lung bases to pubic s ymphysis. Imaging was performed without intravenous contrast. Coronal and sagittal multiplanar refor mats were obtained from the axial data set by the technologist. Radiation Dose : 1. Abdomen/Pelvis: CTDIvol 22.3 mGy, DLP 1163.99 mGy*cm. Findings: Evaluation of vasculature and solid organs is limited due to lack of intravenous contrast use. Lung Bases: There is atelectasis in the bilateral lower lobes and visualized upper lobes. Visualized portions of the heart and pericardium are unremarkable. Liver: The liver is normal in size. No focal lesions. Gallbladder and Biliary Tree: The gallbladder is unremarkable. No intrahepatic or extrahepatic bilia ry ductal dilatation. Spleen: Unremarkable Pancreas: The pancreas is grossly unremarkable. Adrenal Glands: Unremarkable Kidneys: Kidneys are unremarkable without calculi or hydronephrosis. GI tract: The stomach is grossly normal in appearance. There is a ventral abdominal wall hernia cont aining loops of small and large bowel as well as peritoneal fat. There is mild fat stranding of the fat at the entry point of the hernia. The ventral abdominal wall fascial defect measures 5.9 cm. The re is no dilatation of bowel loops to suggest obstruction. The appendix is not visualized, however n o inflammatory changes in the right lower quadrant to suggest acute appendicitis. Peritoneum/mesentery/retroperitoneum. No evidence of free intraperitoneal air. No ascites. No evidenc e of suspicious lymphadenopathy. Abdominal Wall: Unremarkable. Vasculature: The visualized abdominal aorta is normal in size and caliber. Evaluation of abdominal a nd pelvic vessels is limited due to lack of intravenous contrast. Urinary Bladder: Grossly unremarkable for degree of distention. Pelvic Organs: Unremarkable Musculoskeletal: No aggressive focal bony lesions, acute fractures or dislocation. Multilevel lumbar spondylosis. IMPRESSION: 1. Ventral abdominal wall hernia containing small and large bowel loops and mild stranding of the per itoneal fat suggesting inflammation. No bowel obstruction. 2. Atelectasis in the bilateral upper and lower lobes.
[2024-06-25] MEDS: CARVEDILOL 12.5 MG TAB PO ONE (04:16)
[2024-06-25] MEDS: LABETALOL HCL 20 MG/4 ML VL IV PRN (04:19)
[2024-06-25 05:07] VITALS: BP 178/78
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
[2024-06-25] MEDS: metroNIDAZOLE 500MG/100ML 100 ML IV SCH (06:32)
--- NOTE | 2024-06-25 07:08 | DVH ---
CHEST RADIOGRAPH Indication: SOB Technique: Single frontal view of the chest was obtained Comparison: XY CHEST XRAY 1 VIEW on DOS: 03/02/24, XY CHEST XRAY 1 VIEW on DOS: 03/01/24, XY CHEST XRAY 1 VIEW on DOS: 02/29/24, XY CHEST XRAY 1 VIEW on DOS: 02/28/24, XY CHEST PORTABLE on DOS: 02/27/24, XY CHEST XRAY 1 VIEW on DOS: 03/02/24 FINDINGS: Lines and Tubes: Right central venous catheter in satisfactory position. Lungs: Multifocal airspace disease Pleura: No effusion. No pneumothorax. Cardiomediastinal contours: Cardiomegaly Bones: Unremarkable IMPRESSION: No significant interval change.
[2024-06-25 07:46] LABS: INR 1.03 (0.9-1.15); Partial Thromboplastin Time 20.8 SEC (24.5-34.5); Prothrombin Time 10.9 sec (9.3-11.8)
[2024-06-25] MEDS: cefTRIAXone 1GM/50ML D5W 50 ML IV SCH (08:49)
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
[2024-06-25] MEDS: LABETALOL HCL 20 MG/4 ML VL IV ONE (11:17)
[2024-06-25] MEDS: ACETAMINOPHEN 325 MG TAB PO PRN (11:20)
[2024-06-25 11:30] LABS: COVID19 ANTIGEN SOFIA FIA NEGATIVE (NEGATIVE); Rapid Influenza A Negative (Negative); Rapid Influenza B Negative (Negative)
[2024-06-25 13:31] VITALS: BP 116/59; PULSE 65; RESP 18; TEMP 97.7; O2SAT 98
[2024-06-25 16:00] VITALS: BP 164/81; PULSE 76; RESP 16; TEMP 98.5; O2SAT 97
--- NOTE | 2024-06-25 17:44 | DVHDSRES ---
Discharge Summary Date of Admission Resident Creating Document: ILIR OCONNOR RESIDENT Jun 24, 2024 at 22:23 Date of Discharge: Jun 25, 2024 Admitting Diagnosis Ventral hernia Labs/Diagnostic Data: Laboratory Results Test 06/25/24 08:45 06/25/24 07:04 06/24/24 23:35 06/24/24 11:52 Influenza Type A Antigen Negative (Negative) Influenza Type B Antigen Negative (Negative) SARS-CoV-2 Antigen (Rapid) Negative (NEGATIVE) Reticulocyte Count (auto) 1.57 % (0.5-1.5) Prothrombin Time 10.9 sec (9.3-11.8) Prothrombin Time INR 1.03 (0.9-1.15) Activated Partial Thromboplast Time 20.8 SEC (24.5-34.5) Iron Level 28 ug/dL (50-170) Total Iron Binding Capacity 350 ug/dL (250-425) Percent Iron Saturation 8.0 % (15-50) Ferritin 5.8 ng/mL (10-291) B-Type Natriuretic Peptide 100.29 pg/mL (0-100) White Blood Count 7.9 10^3/uL (4.4-10.8) Red Blood Count 4.68 10^6/uL (4.0-5.20) Hemoglobin 11.7 g/dL (12.2-16.2) Hematocrit 36.7 % (36.0-46.0) Mean Corpuscular Volume 78.4 fL (80.0-100.0) Mean Corpuscular Hemoglobin 24.9 pg (28.0-32.0) Mean Corpuscular Hemoglobin Concent 31.8 g/dL (32.0-36.0) Red Cell Distribution Width 17.0 % (11.8-14.3) Platelet Count 269 10^3/uL (140-450) Mean Platelet Volume 8.6 fL (6.9-10.8) Neutrophils (%) (Auto) 60.6 % (37.0-80.0) Lymphocytes (%) (Auto) 29.5 % (10.0-50.0) Monocytes (%) (Auto) 7.1 % (0.0-12.0) Eosinophils (%) (Auto) 2.1 % (0.0-7.0) Basophils (%) (Auto) 0.7 % (0.0-2.0) Neutrophils # (Auto) 4.8 10 ^3/uL (1.6-8.6) Lymphocytes # (Auto) 2.3 10 ^3/uL (0.4-5.4) Monocytes # (Auto) 0.6 10 ^3/uL (0-1.3) Eosinophils # (Auto) 0.2 10 ^3/uL (0-0.8) Basophils # (Auto) 0.1 10 ^3/uL (0-0.2) Nucleated Red Blood Cells 0.2 % Sodium Level 139 mmol/L (136-145) Potassium Level 3.8 mmol/L (3.5-5.1) Chloride Level 108 mmol/L (98-107) Carbon Dioxide Level 22 mmol/L (20-31) Anion Gap 9 (5-15) Blood Urea Nitrogen 11 mg/dL (9-23) Creatinine 0.93 mg/dL (0.550-1.02) Glomerular Filtration Rate Calc 78 mL/min (>90) BUN/Creatinine Ratio 11.8 (10.0-20.0) Serum Glucose 102 mg/dL (74-106) Calcium Level 9.8 mg/dL (8.7-10.4) Total Bilirubin 0.4 mg/dL (0.2-1.0) Aspartate Amino Transferase (AST) 12 U/L (13-40) Alanine Aminotransferase (ALT) 9 U/L (7-40) Alkaline Phosphatase 95 U/L (46-116) Total Protein 7.0 g/dL (5.7-8.2) Albumin 4.3 g/dL (3.2-4.8) Beta HCG, Quantitative 0.6 mIU/mL (1.5-4.2) Urine Color Yellow (Yellow) Urine Clarity Turbid (Clear) Urine pH 5.5 (5.0-9.0) Urine Specific [place] 1.036 (1.001-1.035) Urine Protein 1+ (Negative) Urine Ketones Trace (Negative) Urine Blood Negative /uL (Negative) Urine Nitrite Negative (Negative) Urine Bilirubin Negative (Negative) Urine Urobilinogen Normal mg/dL (Negative) Urine Leukocyte Esterase 3+ /uL (Negative) Urine RBC 21 /hpf (0 - 4) Urine WBC 64 /hpf (0 - 5) Urine Squamous Epithelial Cells Mod /hpf (<5) Urine Bacteria None seen /hpf (None Seen) Urine Mucus Few (None Seen) Urine Yeast (Budding) Occasional /hpf (None Urine Glucose Normal mg/dL (Normal) Other Laboratory Tests 06/24/24 23:35 Brief Hx & Hospital Course: HPI: Patient is a 44-year-old female with a past medical history as described below came to the ED with a chief complaint of abdominal pain for 3 days prior to admission. Patient reported that since the last 2 years she has a ventral hernia which was nonpainful. About a week ago she had flu-like symptoms with exacerbation cold about 3 days ago she started to have pain in her hernia sudden onset, constant, severe 9/10 in intensity associated with nausea on and off but the patient denied vomiting. Patient also reports that since the last 3 days she has been constipated with no passage of stool but the patient has been passing flatus. Hospital course: Patient was evaluated by surgical team, they recommend cardiac evaluation and possible surgery in the outpatient as this is a chronic ventral hernia without signs signs of obstruction. Patient was having hypertensive crisis during hospitalization that was managed with IV antihypertensive. Patient recovered normal blood pressure for which was discharged home with the same home antihypertensive medication and the recommendation to follow up with PCP within 1 to 2 weeks to continue monitoring blood pressure levels and clinical status before the hernia repair surgery. Disposition: Patient stable for discharge to home. Case discussed with . Goals of care discussed with the patient for 32 minutes. Consults/Reason for consult surgical consult: incarcerated abdominal hernia Operations or Procedures [place] [address] Ph: [phone] DIAGNOSTIC IMAGING Diagnostic Imaging Report : [id number] Signed PATIENT: LETICIA BARNARD ACCT: [id number] UNIT: [id number] : 1980 LOC: OVERFLOW ROOM / BED: 1018-ER / A AGE / SEX: 44 / F ADM STATUS: ADM IN SERVICE 0023 ORDERING PHYSICIAN: ANGELICA PALAFOX RESIDENT PROCEDURE(s): ABPL - CT AB PEL WO CON-NO ORAL OR IV REASON: ventral hernia ?strangulation ORDER NUMBER(s): [id number], ACCESSION NUMBER(s): [id number] Exam: CT CT AB PEL WO CON-NO ORAL OR IV History: ventral hernia strangulation Comparison Study: None available at time of dictation. Technique: Multidetector spiral CT of the abdomen and pelvis was performed from lung bases to pubic symphysis. Imaging was performed without intravenous contrast. Coronal and sagittal multiplanar reformats were obtained from the axial data set by the technologist. Radiation Dose : 1. Abdomen/Pelvis: CTDIvol 22.3 mGy, DLP 1163.99 mGy*cm. Findings: Evaluation of vasculature and solid organs is limited due to lack of intravenous contrast use. Lung Bases: There is atelectasis in the bilateral lower lobes and visualized upper lobes. Visualized portions of the heart and pericardium are unremarkable. Liver: The liver is normal in size. No focal lesions. Gallbladder and Biliary Tree: The gallbladder is unremarkable. No intrahepatic or extrahepatic biliary ductal dilatation. Spleen: Unremarkable Pancreas: The pancreas is grossly unremarkable. Adrenal Glands: Unremarkable Kidneys: Kidneys are unremarkable without calculi or hydronephrosis. GI tract: The stomach is grossly normal in appearance. There is a ventral abdominal wall hernia containing loops of small and large bowel as well as peritoneal fat. There is mild fat stranding of the fat at the entry point of the hernia. The ventral abdominal wall fascial defect measures 5.9 cm. There is no dilatation of bowel loops to suggest obstruction. The appendix is not visualized, however no inflammatory changes in the right lower quadrant to suggest acute appendicitis. Peritoneum/mesentery/retroperitoneum. No evidence of free intraperitoneal air. No ascites. No evidence of suspicious lymphadenopathy. Abdominal Wall: Unremarkable. Vasculature: The visualized abdominal aorta is normal in size and caliber. Evaluation of abdominal and pelvic vessels is limited due to lack of intravenous contrast. Urinary Bladder: Grossly unremarkable for degree of distention. Pelvic Organs: Unremarkable Musculoskeletal: No aggressive focal bony lesions, acute fractures or dislocation. Multilevel lumbar spondylosis. IMPRESSION: 1. Ventral abdominal wall hernia containing small and large bowel loops and mild stranding of the peritoneal fat suggesting inflammation. No bowel obstruction. 2. Atelectasis in the bilateral upper and lower lobes. ATED BY: MIRANDA PUGH MD DICTATED DATE/TIME: 06/25/24412 SIGNED BY: MIRANDA PUGH MD SIGNED DATE/TIME: 06/25/24412 CC: [place] [address] Ph: [phone] DIAGNOSTIC IMAGING Diagnostic Imaging Report : [id number] Signed PATIENT: LETICIA BARNARD ACCT: [id number] UNIT: [id number] : 1980 LOC: OVERFLOW ROOM / BED: [facility]-ER / A AGE / SEX: 44 / F ADM STATUS: ADM IN SERVICE 4 ORDERING PHYSICIAN: ANGELICA PALAFOX RESIDENT PROCEDURE(s): CXR1 - CHEST XRAY 1 VIEW REASON: SOB ORDER NUMBER(s): [id number], ACCESSION NUMBER(s): [id number] CHEST RADIOGRAPH Indication: SOB Technique: Single frontal view of the chest was obtained Comparison: XY CHEST XRAY 1 VIEW on DOS: 03/02/24, XY CHEST XRAY 1 VIEW on DOS: 03/01/24, XY CHEST XRAY 1 VIEW on DOS: 02/29/24, XY CHEST XRAY 1 VIEW on DOS: 02/28/24, XY CHEST PORTABLE on DOS: 02/27/24, XY CHEST XRAY 1 VIEW on DOS: 03/02/24 FINDINGS: Lines and Tubes: Right central venous catheter in satisfactory position. Lungs: Multifocal airspace disease Pleura: No effusion. No pneumothorax. Cardiomediastinal contours: Cardiomegaly Bones: Unremarkable IMPRESSION: No significant interval change. ATED BY: JORDAN JOHNSON MD DICTATED DATE/TIME: 06/25/24704 SIGNED BY: JORDAN JOHNSON MD SIGNED DATE/TIME: 06/25/24704 CC: Condition at Discharge: Fair Final Diagnosis/Problems List # acute abdominal pain due to chronic incarcerated hernia # mechanical obstruction was ruled out # heart failure with reduced ejection fraction # hypertensive heart disease # microcytic hypochromic anemia Discharge Disposition: Home SNF Discharge Will this Physician continue t: No Discharge Instruct/Medications Diet: Cardiac 2g Na,low cholest Activity: No Restrictions, As Tolerated Follow Up/Referral: follow up with PCP within 1 to 2 weeks follow up with cardiology for cardiology cleareance before the surgery DC clinic Medications: script to pharmacy Discharge Statement: "Patient was advised to return to the ER or call 911 if any headaches, dizziness, shortness of breath, chest pain, abdominal pain, bleeding, fevers, or worsening of medical condition. Patient was counseled about treatment plan, medications, possible side effects, patientverbalized understanding. All questions were answered to the best of my ability. This discharge took greater then 30 minutes in planning, reviewing documentation, counseling the patient, and discussing with other team members." ASSESSMENT ASSESSMENT Assessment chronic incarcerated hernia Heart failure not on exacerbation Date of Service: Jun 25, 2024 Billing Provider: ARNOLD PORTILLO MD Common Visit Codes: 03517-RNA/OBS DISCH DAY >30min ILIR OCONNOR RESIDENT Jun 25, 2024 17:44 ARNOLD PORTILLO MD Jun 25, 2024 23:47
[2024-06-25] MEDS ORDERED: CARVEDILOL 12.5 MG TAB PO SCH (22:00)
[2024-06-26] MEDS ORDERED: LISINOPRIL 20 MG TAB PO SCH (10:00)
[2024-06-26] MEDS ORDERED: IRON SUCROSE COMPLEX 110 ML IV ONE (12:00)
== END 2024-06-25 21:05 | disposition home or self-care (01) | DRG 254 ==
LOC: ER 11:26 → OVERFLOW 22:23 → EAST 06-25 13:19
PROVIDERS: ADMIT Student in an Organized Health Care Education/Training Program; ATTEND Student in an Organized Health Care Education/Training Program
DX: K43.6 Other and unspecified ventral hernia with obstruction, without gangrene (principal); I11.0 Hypertensive heart disease with heart failure; I50.22 Chronic systolic (congestive) heart failure; D50.9 Iron deficiency anemia, unspecified; F17.210 Nicotine dependence, cigarettes, uncomplicated; F32.A Depression, unspecified; I16.0 Hypertensive urgency; Z20.822 Contact with and (suspected) exposure to COVID-19; K59.00 Constipation, unspecified; J45.909 Unspecified asthma, uncomplicated; Z88.5 Allergy status to narcotic agent; Z80.49 Family history of malignant neoplasm of other genital organs; Z82.0 Family history of epilepsy and other diseases of the nervous system
CPT/HCPCS: 36415; 71045; 74176; 80048; 80053; 81001; 82728; 83540; 83550; 83880; 84702; 85025; 85045; 85610; 85730; 87426; 87804; 99291; G0378; J2405; J3490